=== PATIENT | male | born 1960 | race Caucasian/White ===

== ENCOUNTER → 2018-02-19 09:34 | Outpatient (CLI) | payer OTHER, SELFPAY ==
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
== END ==
PROVIDERS: Visit Provider Chiropractor
DX: M54.2 Cervicalgia (principal); M54.6 Pain in thoracic spine; R20.2 Paresthesia of skin; M24.28 Disorder of ligament, vertebrae; M50.322 Other cervical disc degeneration at C5-C6 level
CPT/HCPCS: 72052

== ENCOUNTER → 2022-08-14 12:59 | Outpatient (CLI) | payer OTHER, SELFPAY ==
[2022-08-14 19:30] LABS: Add Manual Diff / Slide Review NO; Basophils Absolute Auto 100 /uL (0-100); Basophils Percent Auto 1.2 % (0-2); Eosinophils Absolute Auto 100 /uL (0-450); Eosinophils Percent Auto 2.8 % (2-4); Hemoglobin 14.3 g/dL (13.5-17.5); Lymphocytes Absolute Auto 1100 /uL (1100-4500); Lymphocytes Percent Auto 20.9 % (25-40); Mean Corpuscular HGB Conc 33.3 % (30-36); Mean Corpuscular Hemoglobin 32.1 PG (26-34); Mean Corpuscular Volume 96.3 fL (80-100); Monocytes Absolute Auto 400 /uL (0-900); Monocytes Percent Auto 8.3 % (3-14); Neutrophils Absolute Auto 3500 /uL (1500-7000); Neutrophils Percent Auto 66.8 % (50-75); Platelet Count 129 X10^3/uL (150-400); Red Blood Cell Count 4.47 X10^6/uL (4.5-5.9); Red Cell Distribution Width 13.1 % (11.6-14.8); White Blood Cell Count 5.2 X10^3/uL (4.5-11.0)
[2022-08-14 19:48] LABS: Alanine Aminotransferase 17 IU/L (<50); Albumin 4.3 g/dL (3.5-5.0); Albumin Globulin Ratio 1.5 (1.0-2.8); Alkaline Phosphatase 38 U/L (38-126); Aspartate Aminotransferase 22 IU/L (17-59); BUN Creatinine Ratio 17.5 (6-22); Bilirubin Total 0.7 mg/dL (0.2-1.3); Blood Urea Nitrogen 11 mg/dL (9-20); Calcium 8.8 mg/dL (8.4-10.2); Carbon Dioxide 30 mmol/L (22-32); Chloride 99 mmol/L (98-107); Estimated Glomerular Filt Rate > 60 mL/min (>60); Globulin 2.8 g/dL (1.7-4.1); Glucose 68 mg/dL (80-110); HEMOLYSIS < 15 (0-50); Potassium 4.1 mmol/L (3.4-5.1); Sodium 139 mmol/L (137-145); Total Protein 7.1 g/dL (6.3-8.2)
[2022-08-14 20:17] LABS: TSH w/ Reflex to FT4 1.02 uIU/mL (0.47-4.68)
[2022-08-14 20:18] LABS: Prostate Specific Antigen 0.911 ng/mL (0.10-4.00)
== END ==
PROVIDERS: PCP Family Medicine; Visit Provider Physician Assistant
DX: R00.2 Palpitations (principal)
CPT/HCPCS: 80053; 84153; 84443; 85025

== ENCOUNTER → 2022-09-04 13:50 | Outpatient (CLI) | payer OTHER, SELFPAY | PROVIDERS: PCP Family Medicine; Referring Provider Physician Assistant; Visit Provider Physician Assistant | DX: R00.2 Palpitations (principal) | CPT/HCPCS: 93242 ==

== ENCOUNTER → 2022-09-09 09:36 | Outpatient (CLI) | payer OTHER, SELFPAY ==
[2022-09-09 19:24] LABS: Cholesterol 155 mg/dL (140-199); HDL Cholesterol 83 mg/dL (40-60); LDL Cholesterol Calculated 65 mg/dL (<100); Triglycerides 33 mg/dL (35-150)
[2022-09-09 19:26] LABS: Basophils Absolute Auto 0 /uL (0-100); Basophils Percent Auto 0.7 % (0-2); Eosinophils Absolute Auto 200 /uL (0-450); Eosinophils Percent Auto 3.5 % (2-4); Hematocrit 40.4 % (41-53); Hemoglobin 13.8 g/dL (13.5-17.5); Lymphocytes Absolute Auto 1300 /uL (1100-4500); Lymphocytes Percent Auto 25.7 % (25-40); Mean Corpuscular HGB Conc 34.2 % (30-36); Mean Corpuscular Hemoglobin 32.7 PG (26-34); Mean Corpuscular Volume 95.6 fL (80-100); Monocytes Absolute Auto 400 /uL (0-900); Monocytes Percent Auto 7.2 % (3-14); Neutrophils Absolute Auto 3300 /uL (1500-7000); Neutrophils Percent Auto 62.9 % (50-75); Red Blood Cell Count 4.23 X10^6/uL (4.5-5.9); Red Cell Distribution Width 13.4 % (11.6-14.8); White Blood Cell Count 5.2 X10^3/uL (4.5-11.0)
[2022-09-09 19:43] LABS: Add Manual Diff / Slide Review SLIDE REVIEW
[2022-09-09 19:53] LABS: Platelet Estimate Decreased on smear; RBC Morphology Normal Morphology
== END ==
PROVIDERS: Physician Assistant; PCP Family Medicine; Visit Provider Family Medicine
DX: D69.6 Thrombocytopenia, unspecified (principal); Z13.220 Encounter for screening for lipoid disorders
CPT/HCPCS: 80061; 85025

== ENCOUNTER → 2022-10-22 13:14 | Outpatient (CLI) | payer OTHER, SELFPAY ==
[2022-10-22 19:27] LABS: Add Manual Diff / Slide Review NO; Basophils Absolute Auto 0 /uL (0-100); Basophils Percent Auto 0.8 % (0-2); Eosinophils Absolute Auto 200 /uL (0-450); Eosinophils Percent Auto 3.1 % (2-4); Hemoglobin 13.7 g/dL (13.5-17.5); Lymphocytes Absolute Auto 1200 /uL (1100-4500); Lymphocytes Percent Auto 20.4 % (25-40); Mean Corpuscular HGB Conc 34.3 % (30-36); Mean Corpuscular Hemoglobin 32.8 PG (26-34); Mean Corpuscular Volume 95.8 fL (80-100); Monocytes Absolute Auto 500 /uL (0-900); Monocytes Percent Auto 7.8 % (3-14); Neutrophils Absolute Auto 3900 /uL (1500-7000); Neutrophils Percent Auto 67.9 % (50-75); Platelet Count 116 X10^3/uL (150-400); Red Blood Cell Count 4.18 X10^6/uL (4.5-5.9); Red Cell Distribution Width 13.5 % (11.6-14.8); White Blood Cell Count 5.8 X10^3/uL (4.5-11.0)
[2022-10-22 20:14] LABS: HEMOLYSIS < 15 (0-50); Iron 93 ug/dL (49-181)
[2022-10-22 20:25] LABS: Percent Iron Saturation 27 % (20-50); Total Iron Binding Capacity 350 ug/dL (261-462); Transferrin 259 mg/dL (206-381)
[2022-10-22 21:04] LABS: Vitamin B12 758 pg/mL (239-931)
== END ==
PROVIDERS: PCP Family Medicine; Visit Provider Family Medicine
DX: D64.9 Anemia, unspecified (principal); D69.6 Thrombocytopenia, unspecified
CPT/HCPCS: 82607; 83540; 83550; 85025